=== PATIENT | male | born 1990 | race Caucasian/White ===

== ENCOUNTER 2019-08-04 08:33 | Outpatient (CLI) | payer OTHER ==
--- NOTE | 2019-08-04 10:02 | RAD ---
RIGHT HIP 2 VIEWS: HISTORY: Hip pain. FINDINGS: Joint space is well preserved. No fracture or other bony findings. Pseudoarthrosis of the L5 transv erse processes with the sacrum are incidentally noted. IMPRESSION: Unremarkable right hip. 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 POS: [facility]
--- NOTE | 2019-08-04 10:03 | RAD ---
AP PELVIS: HISTORY: Pelvic pain. FINDINGS: SI joints are symmetric. There is what appears to be pseudoarthrosis of the right and left L5 transv erse processes with the sacrum. Hip joints appear unremarkable. IMPRESSION: No acute findings. Pseudoarthrosis of the L5 transverse processes with the sacrum. POS: [facility]
== END 2019-08-04 08:34 | disposition home or self-care (01) ==
LOC: BICRAD 08:33
PROVIDERS: ATTEND Orthopaedic Surgery
DX: M19.90 Unspecified osteoarthritis, unspecified site (principal); S32.05 Fracture of fifth lumbar vertebra
CPT/HCPCS: 72170